=== PATIENT | male | born 1965 | race Caucasian/White ===

== ENCOUNTER → 2017-12-08 | Outpatient (CLI) | payer BC ==
--- NOTE | 2017-12-10 18:13 | CT ---
EXAMINATION TYPE: CT lumbar spine wo con DATE OF EXAM: 12/08/2017 7:08 PM COMPARISON: NONE HISTORY: LEFT FOOT NUMBNESS CT DLP: 1553 mGycm Automated exposure control for dose reduction was used. TECHNIQUE: Unenhanced CT of the lumbar spine was performed. Bone and soft tissue window settings are submitted as well as coronal and sagittal reconstructions. FINDINGS: Vertebral body heights and alignment are maintained of the lumbar spine. Incidental note of a limbus vertebrae, normal anatomic variant, is seen of L3. Multilevel Schmorl's nodes and degenerative disc d isease are noted. Surgical fixation with lumbar rods and pedicular screws are present at L4-L5. Poste rior disc osteophyte complex is seen at this level. L1-L2: There is a large broad-based disc bulge that in combination with mild facet arthropathy create s mild bilateral neural foraminal narrowing and mild spinal canal stenosis. L2-L3: There is a large broad-based disc bulge that in combination with facet arthropathy creating mi ld bilateral neural foraminal narrowing and mild spinal canal stenosis. L3-L4: There is a large broad-based disc bulge, mild facet arthropathy, and mild ligamentum flavum bu ckling that creates moderate bilateral neural foraminal narrowing and mild spinal canal stenosis. L4-L5: Dense material from the intervertebral disc filler/device protrudes posteriorly into the left neural foramen creating severe neural foraminal stenosis. Osteophytes from the posterior inferior and posterior superior endplates create mild right neural foraminal narrowing. Laminectomy defects are s een and despite this there is mild to moderate spinal canal stenosis, partially obscured by spray art ifact. L5-S1: There is a small broad-based disc bulge present without neural foraminal narrowing or spinal c anal stenosis. IMPRESSION: 1. Extruded high density material at L4-L5 level from the intervertebral disc space into the left sudha ral foramen creating severe left neural foraminal stenosis. Mild right neural foraminal narrowing and mild spinal canal stenosis are also present. 2. Moderate multilevel degenerative disc disease resulting in mild spinal canal stenosis throughout t he lumbar spine in variable degree neural foraminal narrowing as described above. 3. No evidence of fracture or malalignment of the lumbar spine.
== END | disposition home or self-care (01) ==
LOC: RADCTMAIN 18:35
PROVIDERS: ATTEND Neurological Surgery
DX: M99.73 Connective tissue and disc stenosis of intervertebral foramina of lumbar region (principal); M48.061 Spinal stenosis, lumbar region without neurogenic claudication; M51.36 Other intervertebral disc degeneration, lumbar region
CPT/HCPCS: 72131

== ENCOUNTER 2019-04-05 08:03 | Day surgery (SDC) | payer BC ==
[2019-04-04 09:36] VITALS: BMI 37.5
[~2019-04-05 08:03] MED LIST: LACTATED RINGERS 1,000 ML IV SCH; LIDOCAINE 1% 20 ML VIAL (10MG/ML) FOR IV START INTRADERMA PRN
[2019-04-05 08:28] VITALS: RESP 16; TEMP 97.5
[2019-04-05 08:37] LABS: Glucose,Whole Blood 153 mg/dL (75-99)
[2019-04-05] MEDS ORDERED: PROPOFOL 10 MG/ML 20 ML VIAL IV ONE (08:37)
--- NOTE | 2019-04-05 08:44 | P.GSHP ---
History of Present Illness H&P Date: 04/05/19 Chief Complaint: Colon cancer screening Patient here today for colonoscopy. No bowel related complaints. Last colonoscopy 20 years ago. That was normal. Past Medical History Past Medical History: Diabetes Mellitus, Hyperlipidemia, Hypertension History of Any Multi-Drug Resistant Organisms: None Reported Past Surgical History: Back Surgery, Heart Catheterization With Stent, Joint Replacement, Orthopedic Surgery Additional Past Surgical History / Comment(s): COLONOSCOPY. RT KNEE SCOPE X 3. LT TKA Past Anesthesia/Blood Transfusion Reactions: Postoperative Nausea & Vomiting (PONV) Date of Last Stent Placement:: 02/22/12 Smoking Status: Current some day smoker - Past Family History Father Family Medical History: Cancer Medications and Allergies Home Medications Medication Instructions Recorded Confirmed Type Aspirin [Adult Low Dose Aspirin EC] 81 mg PO DAILY 04/04/19 04/05/19 History Evolocumab [Repatha Sureclick] 140 mg SQ Q14D 04/04/19 04/05/19 History Gabapentin 600 mg PO BID 04/04/19 04/05/19 History Insulin Degludec [Tresiba] 18 units SQ HS 04/04/19 04/05/19 History Lisinopril [Zestril] 20 mg PO BID 04/04/19 04/05/19 History Magnesium Oxide [Mag-Ox] 400 mg PO DAILY 04/04/19 04/05/19 History Pioglitazone [Actos] 45 mg PO DAILY 04/04/19 04/05/19 History Sertraline [Zoloft] 50 mg PO DAILY 04/04/19 04/05/19 History glipiZIDE [Glucotrol] 10 mg PO AC-BID 04/04/19 04/05/19 History metFORMIN HCL 1,000 mg PO BID 04/04/19 04/05/19 History Allergies Allergy/AdvReac Type Severity Reaction Status Date / Time morphine AdvReac Nausea & Verified 04/05/19 08:19 Vomiting Surgical - Exam Vital Signs Temp Pulse Resp BP Pulse Ox 97.5 F L 76 16 127/79 99 04/05/19 08:24 04/05/19 08:24 04/05/19 08:24 04/05/19 08:24 04/05/19 08:24 Physical exam: General: Well-developed, well-nourished HEENT: Normocephalic, sclerae nonicteric Abdomen: Nontender, nondistended Extremities: No edema Neuro: Alert and oriented Results - Labs Abnormal Lab Results - Last 24 Hours (Table) 04/05/19 Range/Units 08:33 POC Glucose (mg/dL) 153 H (75-99) mg/dL Assessment and Plan (1) Colon cancer screening Narrative/Plan: Will proceed with colonoscopy at this time Current Visit: Yes Status: Acute Code(s): Z12.11 - ENCOUNTER FOR SCREENING FOR MALIGNANT NEOPLASM OF COLON SNOMED Code(s): 608211268
--- NOTE | 2019-04-05 09:01 | P.OP ---
Date of Procedure: 04/05/19 Procedure(s) Performed: PREOPERATIVE DIAGNOSIS: Colon cancer screening POSTOPERATIVE DIAGNOSIS: Normal exam PROCEDURE: Colonoscopy ANESTHESIA: MAC SURGEON: Pascual Marie M.D. SPECIMENS: None ENDOSCOPIC PROCEDURE: The patient was placed on the endoscopy table in the left decubitus position. The Olympus colonoscope was inserted into the anus and passed under direct visualization to the base of the cecum. The appendiceal orifice was visualized. From that point the scope was slowly withdrawn inspecti ng all surfaces carefully. There were no neoplastic inflammatory or polypoid lesions throughout the cecum, ascending, transverse, descending, sigmoid and rectum. There was no visible diverticulosis noted. Digital rectal examination was normal. The patient was taken to the recovery room in stable condition per anesthesia guidelines. RECOMMENDATIONS: Increase fiber. Follow-up colonoscopy 10 years.
[2019-04-05 09:27] VITALS: BP 119/58; PULSE 78
== END 2019-04-05 09:41 | disposition home or self-care (01) ==
LOC: ORWHC2ENDO 08:03
PROVIDERS: ATTEND Surgery
DX: Z12.11 Encounter for screening for malignant neoplasm of colon (principal); I25.10 Atherosclerotic heart disease of native coronary artery without angina pectoris; I10 Essential (primary) hypertension; E78.5 Hyperlipidemia, unspecified; E11.9 Type 2 diabetes mellitus without complications; Z95.5 Presence of coronary angioplasty implant and graft; Z96.653 Presence of artificial knee joint, bilateral; F17.200 Nicotine dependence, unspecified, uncomplicated; Z79.82 Long term (current) use of aspirin; Z79.4 Long term (current) use of insulin; Z79.899 Other long term (current) drug therapy; Z88.5 Allergy status to narcotic agent
CPT/HCPCS: J2704; G0121

== ENCOUNTER → 2020-05-26 | Day surgery (SDC) | payer BC ==
[2020-05-22 09:13] VITALS: BMI 34.9
[~2020-05-26] MED LIST changes: +INSULIN ASPART (NovoLOG) 100 UNIT/ML VIAL SQ ONE; +LIDOCAINE 1% (10MG/ML) FOR IV START INTRADERMA ONE; -LIDOCAINE 1% 20 ML VIAL (10MG/ML) FOR IV START INTRADERMA PRN; +LIDOCAINE 1% INJ 10MG/ML (20 ML MDV) ONE; +PROPOFOL 10 MG/ML 20 ML VIAL IV ONE
[2020-05-26 07:32] VITALS: RESP 16; TEMP 96.5
[2020-05-26 07:57] LABS: Glucose,Whole Blood 244 mg/dL (75-99)
--- NOTE | 2020-05-26 08:22 | P.GSHP ---
History of Present Illness H&P Date: 05/26/20 Chief Complaint: Dysphagia Patient here today for upper endoscopy. Complaints of frequent choking. Says he chokes so much he feels that he will pass out. More often with liquids and solids. Denies reflux. Past Medical History Past Medical History: Coronary Artery Disease (CAD), Diabetes Mellitus, GERD/Reflux, Hyperlipidemia, Hypertension Additional Past Medical History / Comment(s): neuropathy feet, hx stomach ulcers, states occasionally chokes on food. History of Any Multi-Drug Resistant Organisms: None Reported Past Surgical History: Back Surgery, Heart Catheterization With Stent, Joint Replacement, Orthopedic Surgery Additional Past Surgical History / Comment(s): COLONOSCOPY. RT KNEE SCOPE X 3. LT TKA Past Anesthesia/Blood Transfusion Reactions: Motion Sickness, Postoperative Nausea & Vomiting (PONV) Date of Last Stent Placement:: 02/22/12 Past Psychological History: Anxiety Smoking Status: Former smoker Past Alcohol Use History: Daily Additional Past Alcohol Use History / Comment(s): quit smoking 5-6 years ago, used to smoke occasional cigar. Drinks 2 shots daily. Past Drug Use History: None Reported - Past Family History Father Family Medical History: Cancer Additional Family Medical History / Comment(s): bladder cancer Medications and Allergies Home Medications Medication Instructions Recorded Confirmed Type Aspirin [Adult Low Dose Aspirin EC] 81 mg PO DAILY 04/04/19 05/22/20 History Gabapentin 600 mg PO BID 04/04/19 05/26/20 History Pioglitazone [Actos] 45 mg PO DAILY 04/04/19 05/26/20 History Sertraline [Zoloft] 50 mg PO HS 04/04/19 05/26/20 History metFORMIN HCL 1,000 mg PO BID 04/04/19 05/26/20 History Ezetimibe [Zetia] 10 mg PO DAILY 05/22/20 05/26/20 History Lisinopril 40 mg PO DAILY 05/22/20 05/26/20 History Allergies Allergy/AdvReac Type Severity Reaction Status Date / Time morphine AdvReac Nausea & Verified 05/22/20 08:48 Vomiting Surgical - Exam Vital Signs Temp Pulse Resp BP Pulse Ox 96.5 F L 72 16 130/66 98 05/26/20 07:29 05/26/20 07:29 05/26/20 07:29 05/26/20 07:29 05/26/20 07:29 Physical exam: General: Well-developed, well-nourished HEENT: Normocephalic, sclerae nonicteric Abdomen: Nontender, nondistended Extremities: No edema Neuro: Alert and oriented Results - Labs Abnormal Lab Results - Last 24 Hours (Table) 05/26/20 Range/Units 07:47 POC Glucose (mg/dL) 244 H (75-99) mg/dL Assessment and Plan (1) Dysphagia Narrative/Plan: 54-year-old male with dysphagia. Much of his symptoms however sound like aspiration. We'll start with EGD at this time. Current Visit: Yes Status: Acute Code(s): R13.10 - DYSPHAGIA, UNSPECIFIED SNOMED Code(s): 60136475
--- NOTE | 2020-05-26 08:25 | P.PCN ---
Date of Procedure: 05/26/20 Procedure(s) Performed: Preoperative Dx: Dysphagia Postoperative Dx: Duodenitis, mild gastritis, hiatal hernia, mild distal esophagitis Procedure: EGD with Bx Anesthesia: Sedation Endoscopist: Dr. Marie Specimens: Duodenum, antrum, distal esophagus Endoscopic Procedure: The patient was on the endoscopy table in the left decubitus position. The Olympus gastroscope was inserted into the oropharynx and passed under direct visualization to the region of the third portion of the duodenum. From that point the scope was slowly withdrawn inspecting all surfaces carefully. There was mild duodenitis in the first and second portion of the duodenum. No ulcerations were seen. Biopsies of the duodenum took place. The pylorus was widely patent. The stomach was carefully inspected. There was mild gastritis present. A biopsy of the antrum took place to rule out H. pylori. Retroflexion revealed a small to moderate-sized hiatal hernia. GE junction was present 2-3 cm above the diaphragmatic hiatus. There were a few small less than 1 cm non-confluent linear erosions at the GE junction. There was the suggestion of a very subtle Schatzki's ring formation. Remainder of the esophagus appear normal. The patient was then taken to the recovery room in stable condition per anesthesia guidelines. Recommendations: Await biopsy results. Begin antiacid therapy. Again the patient's description of his episodes sound more like aspiration with choking complaints. Says he finds it difficult to breathe during these episodes. Workup for aspiration advised. Modified barium swallow or speech pathology evaluation suggested.
[2020-05-26 08:35] LABS: Glucose,Whole Blood 223 mg/dL (75-99)
[2020-05-26 08:51] VITALS: BP 115/71; PULSE 71
== END ==
LOC: ORWHC2ENDO 07:13
PROVIDERS: ATTEND Surgery
DX: K29.50 Unspecified chronic gastritis without bleeding (principal); K29.80 Duodenitis without bleeding; K44.9 Diaphragmatic hernia without obstruction or gangrene; K22.10 Ulcer of esophagus without bleeding; K21.0 Gastro-esophageal reflux disease with esophagitis; R09.89 Other specified symptoms and signs involving the circulatory and respiratory systems; I25.10 Atherosclerotic heart disease of native coronary artery without angina pectoris; E78.5 Hyperlipidemia, unspecified; I10 Essential (primary) hypertension; E11.42 Type 2 diabetes mellitus with diabetic polyneuropathy; F41.9 Anxiety disorder, unspecified; F32.9 Major depressive disorder, single episode, unspecified; Z87.11 Personal history of peptic ulcer disease; Z98.890 Other specified postprocedural states; Z95.5 Presence of coronary angioplasty implant and graft; Z96.652 Presence of left artificial knee joint; Z87.898 Personal history of other specified conditions; Z91.89 Other specified personal risk factors, not elsewhere classified; Z87.891 Personal history of nicotine dependence; Z79.82 Long term (current) use of aspirin; Z79.899 Other long term (current) drug therapy; Z79.84 Long term (current) use of oral hypoglycemic drugs; Z88.5 Allergy status to narcotic agent; Z80.52 Family history of malignant neoplasm of bladder
CPT/HCPCS: 43239; 88305; J2001; J2704

== ENCOUNTER → 2020-08-31 | Outpatient (CLI) | payer BC ==
--- NOTE | 2020-08-31 11:18 | FL ---
Modified barium swallow. HISTORY: Dysphagia. Modified barium swallow was performed with the department of speech pathology. The patient was prese nted with various consistencies of barium. There is no evidence for aspiration or penetration. Full report is to follow from the department of speech pathology. Impression: Normal study.
== END | disposition home or self-care (01) ==
LOC: RADFLMAIN 10:47
PROVIDERS: ATTEND Otolaryngology
DX: R13.10 Dysphagia, unspecified (principal); Z88.5 Allergy status to narcotic agent
CPT/HCPCS: 74230

== ENCOUNTER → 2020-10-07 | Outpatient (CLI) | payer BC ==
[2020-10-07 09:56] LABS: Appearance,Urine Clear (Clear); Bilirubin,Urine Negative (Negative); Blood,Urine Negative (Negative); Color,Urine Yellow; Glucose,Urine (UA) 3+ (Negative); Ketones,Urine Negative (Negative); Leukocyte Esterase,Urine Negative (Negative); Nitrite,Urine Negative (Negative); Protein,Urine Trace (Negative); Specific Gravity,Urine 1.028 (1.001-1.035); Urobilinogen,Urine <2.0 mg/dL (<2.0)
[2020-10-07 10:11] LABS: Basophils % (A) 1 %; Eosinophils # (A) 0.1 k/uL (0-0.7); Eosinophils % (A) 2 %; HCT 45.6 % (39.0-53.0); HGB 15.2 gm/dL (13.0-17.5); Lymphocytes # (A) 1.3 k/uL (1.0-4.8); Lymphocytes % (A) 25 %; MCH 29.1 pg (25.0-35.0); MCHC 33.4 g/dL (31.0-37.0); MCV 87.1 fL (80.0-100.0); Mean Platelet Volume 7.4; Monocytes # (A) 0.3 k/uL (0-1.0); Monocytes % (A) 5 %; Neutrophils # (A) 3.3 k/uL (1.3-7.7); Neutrophils % (A) 65 %; Platelet Count 149 k/uL (150-450); RBC 5.23 m/uL (4.30-5.90); RDW 12.7 % (11.5-15.5); WBC 5.1 k/uL (3.8-10.6)
[2020-10-07 10:29] LABS: African American GFR (CKD) >90 (>60 ml/min/1.73 sqM); Anion Gap 5 mmol/L; Blood Urea Nitrogen 24 mg/dL (9-20); Calcium 9.4 mg/dL (8.4-10.2); Carbon Dioxide 28 mmol/L (22-30); Chloride 101 mmol/L (98-107); Glucose 154 mg/dL (74-99); Non-African American GFR(CKD) >90 (>60 ml/min/1.73 sqM); Sodium 134 mmol/L (137-145)
== END | disposition home or self-care (01) ==
LOC: LABPAT 08:35
PROVIDERS: ATTEND Urology
DX: Z01.818 Encounter for other preprocedural examination (principal); E11.9 Type 2 diabetes mellitus without complications; R35.0 Frequency of micturition; N52.9 Male erectile dysfunction, unspecified
CPT/HCPCS: 80048; 81003; 85025; 87086

== ENCOUNTER 2020-10-14 08:51 | Observation (INO) | payer BC ==
[2020-10-12 15:20] VITALS: BMI 33.5
--- NOTE | 2020-10-13 21:46 | P.HPIHPCON ---
History of Present Illness H&P Date: 10/14/20 Chief Complaint: erectile dysfunction Mr Quintanilla is a 54 yo male with hx of erectile dysfunction, He failed PDE5i. He was started on ICI and was having pain with erections. Discussed with him the option of IPP. Discussed with him risk, benefit and alternative. Discussed with him the risk of bleeding, infection, device malfunction, need for repeat procedure. Also discussed with him once IPP is implanted he want be able to have erections without the prosthesis. He understood all risks and agreed to proceed. Consent for Procedure: I have explained the operation/procedure to the patient, including the risks, benefits, side effects, alternative therapies (including not receiving the proposed treatment or service), the likelihood of the patient achieving his/her goals, and potential recuperation problems for the procedure/sedation/analgesia, as well as any blood products, if indicated. I also explained to the patient the risks, benefits and side effects of the alternatives, as well as the risks related to not receiving the proposed procedure, care, treatment, or services. - Constitutional Constitutional: Denies chills, Denies fever - Cardiovascular Cardiovascular: Denies chest pain, Denies shortness of breath - Respiratory Respiratory: Denies cough, Denies 7 Past Medical History Past Medical History: Coronary Artery Disease (CAD), Diabetes Mellitus, GERD/Reflux, Hyperlipidemia, Hypertension Additional Past Medical History / Comment(s): neuropathy feet, hx stomach ulcers, states occasionally chokes on food. History of Any Multi-Drug Resistant Organisms: None Reported Past Surgical History: Back Surgery, Heart Catheterization With Stent, Joint Replacement, Orthopedic Surgery Additional Past Surgical History / Comment(s): COLONOSCOPY. RT KNEE SCOPE X 3. LT TKA Past Anesthesia/Blood Transfusion Reactions: Motion Sickness, Postoperative Nausea & Vomiting (PONV) Date of Last Stent Placement:: 02/22/12 Smoking Status: Former smoker - Past Family History Father Family Medical History: Cancer Additional Family Medical History / Comment(s): bladder cancer Medications and Allergies Home Medications Medication Instructions Recorded Confirmed Type Aspirin [Adult Low Dose Aspirin EC] 81 mg PO DAILY 04/04/19 10/12/20 History Gabapentin 600 mg PO BID 04/04/19 10/12/20 History Pioglitazone [Actos] 45 mg PO DAILY 04/04/19 10/12/20 History Sertraline [Zoloft] 50 mg PO HS 04/04/19 10/12/20 History metFORMIN HCL 1,000 mg PO BID 04/04/19 10/12/20 History Ezetimibe [Zetia] 10 mg PO DAILY 05/22/20 10/12/20 History lisinopriL 40 mg PO DAILY 05/22/20 10/12/20 History Ozemppic* 1 dose INJ CHIU 10/12/20 History Allergies Allergy/AdvReac Type Severity Reaction Status Date / Time morphine AdvReac Nausea & Verified 10/12/20 15:09 Vomiting Surgical - Exam - General well developed, well nourished, no distress - ENT normal nares, normal mucosa - Respiratory normal expansion, normal respiratory effort - Psychiatric oriented to time, oriented to person, oriented to place, speech is normal Assessment and Plan Assessment: 54 yo male with hx of ED -OR for IPP
[~2020-10-14 08:51] MED LIST changes: +GENTAMICIN 140 MG in SODIUM CHLORIDE 0.9% 100 ML IVPB ONE; +HYDROmorphone 0.5 MG/0.5 ML SYRINGE IVP PRN; -INSULIN ASPART (NovoLOG) 100 UNIT/ML VIAL SQ ONE; -LACTATED RINGERS 1,000 ML IV SCH; -LIDOCAINE 1% (10MG/ML) FOR IV START INTRADERMA ONE; -LIDOCAINE 1% INJ 10MG/ML (20 ML MDV) ONE; +ONDANSETRON 4 MG/2 ML VIAL IVP ONE; -PROPOFOL 10 MG/ML 20 ML VIAL IV ONE
[2020-10-14 09:28] LABS: Glucose,Whole Blood 164 mg/dL (75-99)
[2020-10-14] MEDS ORDERED: LIDOCAINE 1% (10MG/ML) FOR IV START INTRADERMA ONE (09:39)
[2020-10-14] MEDS: DEXAMETHASONE SOD PHOSPHATE 4 MG/ML 1 ML VIAL IV ONE ×2 (09:40→15:55)
[2020-10-14] MEDS: LACTATED RINGERS 1,000 ML IV SCH ×2 (09:40→10:30)
[2020-10-14] MEDS: VANCOMYCIN 1,750 MG in SODIUM CHLORIDE 0.9% 500 ML 500 ML IVPB ONE ×3 (09:42→10:30)
[2020-10-14] MEDS ORDERED: PHENYLEPHRINE-0.9% NACL SYG 1 MG/10 ML SYRINGE ONE (10:28)
[2020-10-14] MEDS ORDERED: NEOSTIGMINE 1 MG/ML 10 ML VIAL ONE (10:28)
[2020-10-14] MEDS ORDERED: PROPOFOL 10 MG/ML 20 ML VIAL IV ONE (10:28)
[2020-10-14] MEDS ORDERED: SUCCINYLCHOLINE CHLORIDE 100 MG/5 ML SYR IV ONE (10:28)
[2020-10-14] MEDS ORDERED: fentaNYL (PF) 50 MCG/ML 2 ML AMP ONE (10:28)
[2020-10-14] MEDS ORDERED: MIDAZOLAM 2 MG/2 ML VIAL ONE (10:28)
[2020-10-14] MEDS ORDERED: ROCURONIUM 10 MG/ML (10 ML VIAL) IV ONE (10:28)
[2020-10-14] MEDS ORDERED: LIDOCAINE 1% INJ 10MG/ML (20 ML MDV) ONE (10:28)
[2020-10-14] MEDS ORDERED: GLYCOPYRROLATE 0.2 MG/ML 2 ML VIAL ONE (10:28)
[2020-10-14] MEDS ORDERED: GENTAMICIN 80 MG in SODIUM CHLORIDE 0.9% 200 ML IRRIGATION ONE (10:55)
[2020-10-14] MEDS ORDERED: ceFAZolin 1,000 MG in SODIUM CHLORIDE 0.9% 1,000 ML IRRIGATION ONE (10:56)
[2020-10-14] MEDS ORDERED: GENTAMICIN PER PHARMACY MISCELLANE PRN (12:59)
[2020-10-14] MEDS ORDERED: SODIUM CHLORIDE 0.9% 1,000 ML IV SCH (13:00)
[2020-10-14 14:33] LABS: Glucose,Whole Blood 183 mg/dL (75-99)
[2020-10-14] MEDS: HYDROcodone/APAP 5-325MG 1 EACH TAB PO PRN ×2 (15:53→21:11)
[2020-10-14] MEDS: HEPARIN SODIUM,PORCINE 5,000 UNIT/ML 1 ML VIAL SQ SCH ×2 (16:53→23:02)
[2020-10-14] MEDS: KETOROLAC 15 MG/ML 1 ML VIAL IVP SCH ×2 (16:53→23:02)
[2020-10-14] MEDS: AMPICILLIN 1,000 MG in SODIUM CHLORIDE 0.9% 50 ML IVPB SCH ×2 (16:54→23:02)
[2020-10-14 17:05] LABS: Glucose,Whole Blood 162 mg/dL (75-99)
[2020-10-14] MEDS ORDERED: GENTAMICIN 480 MG in SODIUM CHLORIDE 0.9% 100 ML IVPB ONE (18:00)
[2020-10-14] MEDS: metFORMIN 500 MG TAB PO SCH (20:05)
[2020-10-14] MEDS: GABAPENTIN 300 MG CAP PO SCH (20:05)
[2020-10-14] MEDS ORDERED: SERTRALINE 50 MG TAB PO SCH (21:00)
[2020-10-15] MEDS: HYDROcodone/APAP 5-325MG 1 EACH TAB PO PRN ×2 (01:45→08:56)
[2020-10-15] MEDS: AMPICILLIN 1,000 MG in SODIUM CHLORIDE 0.9% 50 ML IVPB SCH (05:51)
[2020-10-15] MEDS: KETOROLAC 15 MG/ML 1 ML VIAL IVP SCH (05:51)
[2020-10-15 07:51] VITALS: BP 100/64; PULSE 87; RESP 18; TEMP 97.7
[2020-10-15] MEDS: HEPARIN SODIUM,PORCINE 5,000 UNIT/ML 1 ML VIAL SQ SCH (08:55)
[2020-10-15] MEDS: GABAPENTIN 300 MG CAP PO SCH (08:56)
[2020-10-15] MEDS: metFORMIN 500 MG TAB PO SCH (08:57)
[2020-10-15] MEDS ORDERED: EZETIMIBE 10 MG TAB PO SCH (09:00)
[2020-10-15] MEDS ORDERED: lisinopriL 20 MG TAB PO SCH (09:00)
[2020-10-15] MEDS ORDERED: PIOGLITAZONE 45 MG TAB PO SCH (09:00)
[2020-10-15] MEDS: LACTATED RINGERS 1,000 ML IV SCH (09:12)
--- NOTE | 2020-10-15 09:53 | P.OP ---
Date of Procedure: 10/14/20 Preoperative Diagnosis: erectile dysfunction Postoperative Diagnosis: same Procedure(s) Performed: Insertion of inflatable penile prosthesis Implants: AMS 700 penile prosthesis Anesthesia: VANDAA Surgeon: Fadi Leal Estimated Blood Loss (ml): 30 Pathology: none sent Condition: stable Disposition: PACU Indications for Procedure: Mr Quintanilla is a 54 yo male with hx of erectile dysfunction, He failed PDE5i. He was started on ICI and was having pain with erections. Discussed with him the option of IPP. Discussed with him risk, benefit and alternative. Discussed with him the risk of bleeding, infection, device malfunction, need for repeat procedu re. Also discussed with him once IPP is implanted he want be able to have erections without the prosthesis. He understood all risks and agreed to proceed. Operative Findings: uncomplicated Inflatable penile prosthesis, patient had evidence Description of Procedure: Patient is brought to the operating suite. He is given a general endotracheal anesthesia. He is prepped and draped sterilely. A midline infrapubic incision is made to just above the pubis. The rectus fascias opened in the midline. The prevesical space is developed for the reservoir. I bring a right angle clamp through the external inguinal ring into the prevesical space. I then attached the reservoir tubing and pull back through the external ring. I then inflated the reservoir to 65 mL. I closed the rectus fascia with a running 0 PDS. I then exposed the corpora bilaterally. I make corporotomies after placing stay stitches in each corpora. I then dilate the corpora proximally and distally right and left with Metzenbaum scissors and then Hegar dilators 9-14 bilaterally. of note patient had fibrosis of bilateral distal corporal bodies. I measured the length of the corpora on left 9 cm proximally and 10 cm distally and on right 8 cm proximally and 10.5 cm distally. I therefore use a series 700 CX implant 18 cm . I then attached the ditch at the tip of the implant through the Virgilio needle into the Page introducer and advanced the implant right left through the tip of the glans penis a. I then place the implant in distally and proximally. I inflate the implant and there is no ST deformity or buckling. I then deflated the implant and close each corporotomy 3-0 PDS. Then make a separate scrotal pouch for the pump. Then connected the pump to the reservoir with straight connects. I once again inflate and deflate the implant. there was mild peyeronies and modelling was performed. The wound thoroughly irrigated . The wound was closed with 3-0 Vicryl. The skin was closed with 4-0 monocryl The patient is awake and returned recovery in good condition.
--- NOTE | 2020-10-15 10:55 | P.DS ---
Providers Attending physician: Fadi Lela MD Primary care physician: [facility] Course: Mr Melendez is 54 yo male with hx of erectile dysfunction, He underwent IPP placement on 10/14. please see op note dated 10/14 for full surgery details. He was admitted to the floor post operatively for IV antibiotics and pain control. He was doing well in the post operative period. He was discharged home on POD #1. At time of discharge, he was tolerating a diet, ambulating and pain was well controlled. His incision was CDI, and exam was benign. He was discharged home on POD #1, He will f/u in 2 weeks. Plan - Discharge Summary Discharge Rx Participant: No New Discharge Prescriptions: No Action Pioglitazone [Actos] 45 mg PO DAILY metFORMIN HCL 1,000 mg PO BID Gabapentin 600 mg PO BID Aspirin [Adult Low Dose Aspirin EC] 81 mg PO DAILY Sertraline [Zoloft] 50 mg PO HS lisinopriL 40 mg PO DAILY Ezetimibe [Zetia] 10 mg PO DAILY Ozemppic* 1 dose INJ CHIU Discharge Medication List Aspirin [Adult Low Dose Aspirin EC] 81 mg PO DAILY 04/04/19 [History] Gabapentin 600 mg PO BID 04/04/19 [History] Pioglitazone [Actos] 45 mg PO DAILY 04/04/19 [History] Sertraline [Zoloft] 50 mg PO HS 04/04/19 [History] metFORMIN HCL 1,000 mg PO BID 04/04/19 [History] Ezetimibe [Zetia] 10 mg PO DAILY 05/22/20 [History] lisinopriL 40 mg PO DAILY 05/22/20 [History] Ozemppic* 1 dose INJ CHIU 10/12/20 [History]
== END 2020-10-15 12:34 | disposition home or self-care (01) ==
LOC: OR 08:51 → 4SSUR 12:27 → OR 10-15 09:06 → 4SSUR 10-15 09:06
PROVIDERS: ADMIT Urology; ATTEND Urology
DX: N52.9 Male erectile dysfunction, unspecified (principal); I25.10 Atherosclerotic heart disease of native coronary artery without angina pectoris; Z95.5 Presence of coronary angioplasty implant and graft; I10 Essential (primary) hypertension; E11.42 Type 2 diabetes mellitus with diabetic polyneuropathy; E78.2 Mixed hyperlipidemia; E66.9 Obesity, unspecified; Z68.32 Body mass index [BMI] 32.0-32.9, adult; E78.1 Pure hyperglyceridemia; E78.00 Pure hypercholesterolemia, unspecified; Z79.899 Other long term (current) drug therapy; Z79.84 Long term (current) use of oral hypoglycemic drugs; Z79.82 Long term (current) use of aspirin; K21.9 Gastro-esophageal reflux disease without esophagitis; Z87.11 Personal history of peptic ulcer disease; Z96.652 Presence of left artificial knee joint; Z98.890 Other specified postprocedural states; Z87.891 Personal history of nicotine dependence; Z80.52 Family history of malignant neoplasm of bladder; Z88.5 Allergy status to narcotic agent; F32.9 Major depressive disorder, single episode, unspecified
CPT/HCPCS: 54405; 86900; 86901; 86850; G0378; C1813; J2250; J3370; J1580 ×2; J1644 ×2; J1100; J2710; J0690; J2001; J3010; J0290 ×2; J1885 ×2; J2370; J0330; J2704